=== PATIENT | female | born 1965 ===

== ENCOUNTER 2021-07-05 17:27 | Emergency (ER) | payer SELFPAY ==
[~2021-07-05] VITALS: Ht 165.1 cm; Wt 50.0 kg
[2021-07-05 17:39] VITALS: BP 142/99
--- NOTE | 2021-07-05 18:09 | NUR ---
nil x1
--- NOTE | 2021-07-05 20:10 | NUR ---
PT CALLED FOR ROOM. PT SAYS SHE NEEDS TO USE THE BATHROOM.
[2021-07-05 20:18] LABS: BASOPHILS % (AUTO) 0 % (0-1); EOSINOPHILS % (AUTO) 2 % (1-7); LYMPHOCYTES % (AUTO) 31 % (22-44); MEAN CORPUSCULAR HEMOGLOBIN 30.9 pg (27.0-34.8); MEAN CORPUSCULAR HGB CONC 34.3 g/dL (32.4-35.8); MEAN PLATELET VOLUME 9.3 fL (7.4-10.4); MONOCYTES % (AUTO) 10 % (2-9); NEUTROPHILS % (AUTO) 57 % (42-75); PLATELET COUNT 173 x10^3/uL (130-400); RED BLOOD COUNT 4.45 x10^6/uL (3.82-5.3); RED CELL DISTRIBUTION WIDTH 12.9 % (9.6-15.2)
--- NOTE | 2021-07-05 20:24 | NUR ---
PT RECALLED AND NA X 2
[2021-07-05 20:26] LABS: ANION GAP 6 mmol/L (5-15); CALCIUM 9.4 mg/dL (8.5-10.1); CHLORIDE 103 mmol/L (98-107)
[2021-07-05 20:31] LABS: ALANINE AMINOTRANSFERASE 36 U/L (12-78); ALKALINE PHOSPHATASE 101 U/L (45-117); CREATININE 0.93 mg/dL (0.55-1.02); TOTAL PROTEIN 7.8 g/dL (6.4-8.2)
[2021-07-05] MEDS ORDERED: ACETAMINOPHEN 500 MG TABLET PO ONE (22:00)
[2021-07-05] MEDS ORDERED: ONDANSETRON ODT 4 MG PO ONE (22:00)
[2021-07-05] MEDS ORDERED: ONDANSETRON ODT 4 MG ONE (22:15)
== END 2021-07-05 22:45 | disposition home or self-care (01) ==
LOC: ED 18:00
DX: R11.2 Nausea with vomiting, unspecified (principal); R10.9 Unspecified abdominal pain; Z72.9 Problem related to lifestyle, unspecified
CPT/HCPCS: 36415; 80053; 83690; 85025; 99283; Q0162